=== PATIENT | female | born 1990 | race Caucasian/White ===

== ENCOUNTER 2016-09-05 19:41 | Emergency (ER) | payer MEDICAID ==
--- NOTE | 2016-09-05 20:20 | ED Physician Chart ---
Chief Complaint/HPI - Patient Information Date Seen:: 09/05/16 Time Seen:: 19:53 Chief Complaint:: cough History of Present Illness:: 26-year-old female, otherwise healthy, complains of acute, moderate, nonproductive, cough 3 weeks. Has associated sinus pressure and nasal discharge. Allergies:: Allergies Allergy/AdvReac Type Severity Reaction Status Date / Time No Known Allergies Allergy Verified 09/05/16 20:03 Vitals:: Vital Signs - 8 hr 09/05/16 19:45 Temp 97.4 F HR 98 RR 18 BP 123/78 O2 Sat % 97 Historian:: Patient Review:: Nurse's Note Reviewed Review of Systems - Review of Systems Other: Complete system review otherwise unremarkable except as noted in HPI. Past Medical History - Past Medical History Past Medical History: No significant medical hx Family History: None Social History: Non Smoker, No Alcohol, No Drug Use, Employed Surgical History: None Psychiatricy History: None Medication: None Family Medical History - Family Member Mother Ethnicity: Living Status: Still Living Hx Family Cancer: No Hx Family Coronary Artery Disease: No Hx Family Congestive Heart Failure: No Hx Family Hypertension: No Physical Exam - Physical Examination Other:: INITIAL VITAL SIGNS: Reviewed by me GENERAL: Alert and interactive. No acute distress HEAD: Head is normocephalic and atraumatic EYES: EOMI. . No scleral icterus. No conjunctival injection ENT: Moist mucous membranes. Bilateral tenderness over maxillary sinuses. Tonsils are erythematous and slightly edematous. NECK: Supple. No masses. Full range of motion RESPIRATORY: No tachypnea. Clear breath sounds bilaterally. No wheezing, rales, or rhonchi CV: Regular rate and rhythm. No murmurs, rubs, or gallops ABDOMEN: Soft, non-distended, non-tender. No guarding. No rebound. No masses. EXTREMITIES: No deformity. No cyanosis. No edema. SKIN: Warm and dry. No obvious rashes. NEUROLOGIC: Alert and oriented. Face is symmetric. Speech is normal. Moves all extremities equally. Motor and sensory distally intact. ED Septic Shock - . Is Septic Shock (SBP<90, OR Lactate>4 mmol\L) present?: No - <6hrs of presentation: Vital Signs: Vital Signs - 8 hr 09/05/16 19:45 Temp 97.4 F HR 98 RR 18 BP 123/78 O2 Sat % 97 Reassessment (Disposition) - Reassessment Reassessment:: The patient's blood pressure was elevated (>120/80) but appears stable without evidence of hypertensive emergency or urgency. The patient was counseled about the risks hypertension urged to pursue outpatient monitoring and therapy within a week with her primary care physician. Patient appears to have slight maxillary sinus infection. Also coughing. We' ll prescribe Flonase, Everardo-Ronna Scherersalava Guerrero. PCP 1-2 days. Return to ER precautions given. Patient understands and agrees the plan. - Diagnosis Diagnosis:: Bilateral maxillary sinusitis, acute Elevated blood pressure without the diagnosis hypertension - Aftercare/Follow up Instructions Aftercare/Follow-Up Instructions:: Counseled pt regarding lab results/diagnosis & need follow up, Refer to Discharge Instructions Medication Prescribed:: Z-Gilmer Tessalon Perles Flonase - Patient Disposition Discharge/Transfer:: Home Time:: 20:41 Condition at Disposition:: Improved ED Discharge Plan - Patient Disposition Admit/Discharge/Transfer: PT DISCHARGED HOME Condition at Disposition: Improved Instructions: Sinusitis, [id number]
[2016-09-05] MEDS ORDERED: Dexamethasone Sodium Phos 4 mg/mL Vial IM STA (20:41)
[2016-09-05] MEDS ORDERED: Dexamethasone Sodium Phos 10 mg/mL PF Vial ONE (20:47)
== END 2016-09-05 21:30 | disposition home or self-care (01) ==
LOC: ER 19:41
DX: J01.00 Acute maxillary sinusitis, unspecified (principal); R03.0 Elevated blood-pressure reading, without diagnosis of hypertension
CPT/HCPCS: 99284; 96372 ×2; J1885; Z7502